=== PATIENT | male | born 1995 | race African-American/Black ===

== ENCOUNTER 2024-07-30 10:54 | Emergency (ER) | payer SELFPAY ==
[2024-07-30] MEDS: traMADol 50 MG Tab PO STA (15:26)
== END 2024-07-30 16:59 | disposition home or self-care (01) ==
LOC: MW.ED 10:54
DX: M54.6 Pain in thoracic spine (principal); Z79.899 Other long term (current) drug therapy; Z75.8 Other problems related to medical facilities and other health care
CPT/HCPCS: 71046; 71046-26; 87428-QW; 99284; A9270-GY

== ENCOUNTER 2025-04-29 08:49 | Emergency (ER) | payer SELFPAY ==
[2025-04-29] MEDS ORDERED: Sodium Chloride 0.9% 10 ML Syringe FLUSH PRN (10:07)
[2025-04-29] MEDS ORDERED: Sodium Chloride 0.9% 2.5 ML Syringe FLUSH PRN (10:07)
[2025-04-29] MEDS: Ketorolac 30 MG/ML SDV IVPUSH ONE (10:34)
[2025-04-29 10:43] LABS: BASOPHILS ABSOLUTE AUTO 0.03 K/uL (0.00-0.20); BASOPHILS PERCENT AUTO 0.5 % (0.0-1.0); EOSINOPHILS ABSOLUTE AUTO 0.13 K/uL (0.00-0.45); EOSINOPHILS PERCENT AUTO 2.2 % (0.0-6.0); IMMATURE GRAN ABSOLUTE AUTO 0.01 K/uL (0.00-0.05); IMMATURE GRAN PERCENT AUTO 0.2 % (0.0-0.4); LYMPHOCYTES ABSOLUTE AUTO 2.26 K/uL (1.00-4.80); LYMPHOCYTES PERCENT AUTO 38.0 % (24.0-44.0); MEAN PLATELET VOLUME 9.0 fL (9.4-12.4); MONOCYTES ABSOLUTE AUTO 0.88 K/uL (0.00-0.80); MONOCYTES PERCENT AUTO 14.8 % (0.0-8.0); NEUTROPHILS ABSOLUTE AUTO 2.64 K/uL (1.80-7.70); NEUTROPHILS PERCENT AUTO 44.3 % (41.0-71.0); NRBC ABSOLUTE 0.00 K/uL (0.00-0.02); NRBC PERCENT 0.0 /100WBC (0.0-0.2); PLATELET COUNT,PLT 308 K/uL (150-400); RED BLOOD CELL COUNT 4.70 M/uL (4.52-5.90); WHITE BLOOD CELL COUNT,WBC 5.95 K/uL (3.9-11.3)
[2025-04-29 11:10] LABS: A/G RATIO 1.0 (0.9-1.6); ALANINE AMINOTRANSFERASE,ALT 35.0 IU/L (14-63); ASPARTATE AMNIOTRANSFERASE,AST 19.0 IU/L (15-37); BILIRUBIN TOTAL 1.0 mg/dL (0.2-1.0); BLOOD UREA NITROGEN,BUN 16.0 mg/dL (7.0-18.0); CARBON DIOXIDE,CO2 26.1 mmol/L (21.0-32.0); CHLORIDE,CL 104.0 mmol/L (98-107); CREATININE 1.0 mg/dL (0.8-1.3); EST CRCL DRUG DOSING (CG) 105.84 mL/min; GLUCOSE RANDOM 81.0 mg/dL (74-106); POTASSIUM,K 4.2 mmol/L (3.5-5.1); PROTEIN TOTAL,TP 8.3 g/dL (6.4-8.2); SODIUM,NA 139.0 mmol/L (136-148)
[2025-04-29 11:11] LABS: ESTIMATED GFR 105.0 mL/min (>60)
[2025-04-29 13:45] LABS: FOLIC ACID 20.5 ng/mL (8.60-58.90)
== END 2025-04-29 13:41 | disposition home or self-care (01) ==
LOC: MW.ED 08:49
DX: M79.89 Other specified soft tissue disorders (principal); M79.671 Pain in right foot; M79.672 Pain in left foot; Z79.899 Other long term (current) drug therapy
CPT/HCPCS: 36415; 80053; 82607; 82746; 84550; 85025; 85652; 86140; 93970; 96374; 99284; J1885; 99283